=== PATIENT | male | born 1940 | race Caucasian/White ===

== ENCOUNTER → 2020-06-18 05:33 | Outpatient (CLI) | payer MEDICARE, SELFPAY ==
[2020-06-18 19:34] LABS: SARS-CoV-2 RNA PCR Negative
== END ==
PROVIDERS: PCP Family Medicine; Visit Provider Internal Medicine Cardiovascular Disease
DX: Z01.812 Encounter for preprocedural laboratory examination (principal); Z20.822 Contact with and (suspected) exposure to COVID-19
CPT/HCPCS: C9803; U0003; U0005

== ENCOUNTER 2020-06-21 01:21 | Day surgery (SDC) | payer MEDICARE, SELFPAY ==
[2020-06-20 16:10] VITALS: BMI 28.5
[2020-06-21] VITALS (12 sets, daily range): BP systolic 101–144; BP diastolic 75–101; PULSE 52–98; RESP 15–26; TEMP 36.2–36.3; O2SAT 92–98; BMI 24.5
--- NOTE | 2020-06-21 10:00 | ECG_ITS ---
Measurements Intervals [place] Rate: 89 P: ID: 0 QRS: 30 QRSD: 89 T: -13 QT: 359 QTc: 439 Interpretive Statements ATRIAL FIBRILLATION NONSPECIFIC T-WAVE ABNORMALITY- INFERIOR LEADS BASELINE ARTIFACT- V4-V6 ABNORMAL ECG Electronically Signed On 06-21-2020 10:51:23 CDT by Kofi Brooks D.O.
[2020-06-21 10:49] LABS: Hematocrit 43.1 % (42.0-52.0); Hemoglobin 14.2 g/dL (14.0-18.0); Mean Corpuscular HGB Conc 32.9 g/dl (32-36); Mean Corpuscular Hemoglobin 29.4 pg (26-34); Mean Corpuscular Volume 89.2 fl (80-100); Platelet Count Result 194 k/mm3 (150-375); Red Blood Count 4.83 M/mm3 (4.6-6.20); Red Cell Distribution Width 13.6 % (11.5-14.5); White Blood Count 6.8 K/mm3 (4.5-10.0)
[2020-06-21 11:03] LABS: Anion Gap 6 mmol/L (8-16); Blood Urea Nitrogen 21 mg/dL (9-20); Calcium 8.8 mg/dL (8.4-10.2); Carbon Dioxide 27 mmol/L (22-30); Chloride 108 mmol/L (98-107); Estimated CRCL calculation 58 ml/min; Estimated Glomerular Filt Rate > 60; Glucose 89 mg/dL (75-110); Potassium 4.1 mmol/L (3.4-5.0); Sodium 141 mmol/L (137-145)
--- NOTE | 2020-06-21 12:00 | WPDMODSED ---
Moderate Sedation Note-Pt Data Patient Data Diagnosis: Atrial fibrillation Present Complaint: None Procedure to be performed/Plan: Transesophageal echocardiogram guided elective electrical cardioversion Allergies Allergy/AdvReac Type Severity Reaction Status Date / Time No Known Allergies Allergy Unverified 05/18/20 13:02 Home Medications Medication Instructions Recorded Confirmed Type apixaban 5 mg tablet 5 mg PO BID #60 tablet 05/18/20 06/20/20 Rx vitamins A,C,B-tmfq-bwdcqe 14,320 1 cap PO BID 05/18/20 06/20/20 History unit-226 mg-200 unit capsule amlodipine 10 mg tablet See Rx Instructions .ROUTE 05/26/20 06/20/20 Rx .COMPLEX #90 tablet lisinopril 30 mg tablet See Rx Instructions .ROUTE 05/26/20 06/20/20 Rx .COMPLEX #90 tablet Current Medications: Active Medications Sodium Chloride (Normal Saline Iv) 1,000 mls @ 30 mls/hr IV CONT .Q24H VICENTA Sedation/Anesthesia: No previous sedation/anesthesia problems (including family history). PMFSH Past Medical History Medical History Afib Surgical History Surgical History History of radical prostatectomy Family History Family History Father Family history of lung cancer Mother Family history of coronary artery disease Social History Social History Smoking status: Former smoker Tobacco type: cigarettes Second hand tobacco smoke exposure: No Additional smoking assessment comments: Smoked for 5 years Alcohol intake: current Substance use: never Substance use type: does not use Living arrangements: with family Gender identity (if verbalized by the patient): Male Spiritual care concerns: No Mod Sed Physical Exam Physical Exam Pre Procedural Exam: Normal: Appearance, Eyes, Ears, Nose, Neck (Supple, normal range of motion), Throat (Posterior hypopharynx clear, nonerythematous), Airway (Normal anatomy, no obstruction), Lungs (Clear to auscultation bilaterally), Heart Size, Heart Rate, Neuro Exam, Abdomen, Liver, Kidneys, Extremities and Skin and Variation: Heart Rhythm (Irregular irregular) Hours since solid foods: 12 Hours since liquid intake: 12 Internal Medicine - PN: Obj Da Vital Signs Vital Signs: Vital Signs - 24 hr 06/21/20 10:37 Temperature 36.3 C L Pulse Rate 85 Respiratory Rate 20 Blood Pressure 120/90 Pulse Oximetry 97 Meds/Results Medications: Active Medications Generic Name Dose Route Start Last Admin Trade Name Freq PRN Reason Stop Dose Admin Sodium Chloride 1,000 mls @ 30 mls/hr 06/21/20 10:00 Normal Saline Iv IV CONT .Q24H VICENTA Labs CBC & Chem 7: 06/21/20 10:23 06/21/20 10:23 Labs: Laboratory Results - last 24 hr 06/21/20 06/21/20 06/21/20 10:23 10:23 10:23 WBC 6.8 RBC 4.83 Hgb 14.2 Hct 43.1 MCV 89.2 MCH 29.4 MCHC 32.9 RDW 13.6 Plt Count 194 MPV 11.0 H Sodium 141 Potassium 4.1 Chloride 108 H Carbon Dioxide 27 Anion Gap 6 L BUN 21 H Creatinine 0.90 Estim Creat Clear Calc 58 Estimated GFR > 60 Glucose 89 Calcium 8.8 Magnesium 2.0 ASA Classification/Sedation ASA Classification/Sedation ASA Class: III Emergent: No Risks: Risks, benefits and alternatives explained and patient/family accepted plan for sedation. Patient re-evaluated immediately prior to sedation.
--- NOTE | 2020-06-21 12:02 | WPDHPUPDATE1 ---
History and Physical Update Update Date/Time: 06/21/20 12:02 History and Physical has been reviewed, including an updated exam of the patient. There are NO changes in the patient's condition. Risks, benefits, and alternatives have been discussed and questions answered. Patient agrees to proceed with procedure.
--- NOTE | 2020-06-21 12:32 | ECG_ITS ---
Measurements Intervals [place] Rate: 59 P: 66 CA: 179 QRS: 40 QRSD: 92 T: 17 QT: 439 QTc: 437 Interpretive Statements SINUS BRADYCARDIA ATRIAL PREMATURE COMPLEXES BORDERLINE ST-T WAVE ABNORMALITY- ANT/INF LEADS BORDERLINE ECG Electronically Signed On 06-21-2020 12:46:51 CDT by Kofi Brooks D.O.
--- NOTE | 2020-06-21 12:34 | WPDTECDV ---
[facility] with Cardioversion Date of procedure: 06/21/20 Procedure Type: Transesophageal echocardiographic guided elective electrical cardioversion Diagnosis: Atrial fibrillation Indications: Atrial fibrillation Description of Procedure: Brief history present illness: Patient is a pleasant 80-year-old male with a history of recent diagnosis atrial fibrillation symptomatic with fatigue and shortness of breath, hypertension started on systemic anticoagulation and referred for transesophageal echocardiogram-guided elective electrical cardioversion in attempt to restore sinus rhythm. Procedure in detail: After verbal and written informed consent was obtained the patient risks, benefits, and alternatives explained in detail the patient agreed to proceed with the plan of care as outlined above. Patient was evaluated at bedside in the [facility] procedure room. On examination, neck was supple with normal range of motion, no restrictions to opening of the oral cavity, jaw angle and posterior hypopharynx was clear. Lungs were clear to auscultation. Patient was placed in appropriate 30 to 45 degree angle in a supine, slight left lateral decubitus position. Patient was monitored throughout the study with telemetry, oxygen saturation, end-tidal CO2 monitoring, blood pressure, heart rate, and respirations. Anterior and posterior defibrillator pads placed in the appropriate positions. The posterior hypopharynx was then locally anesthetized using repeated administration of Hurricaine spray as well as gargled viscous lidocaine. After local anesthetic of the posterior hypopharynx was achieved and the oral bite block placed, moderate sedation was administered. Through the oral bite block, the transesophageal echocardiogram probe was advanced into the posterior hypopharynx and into the esophagus easily and without complication. Multiple, multiplanar echocardiographic images were obtained in multiple standard re-projections. Pulsed wave, continuous-wave, and color-flow Doppler were utilized in conjunction with this study. At the conclusion of the study, the transesophageal echocardiogram probe was removed easily and without complication. Patient tolerated the procedure well without difficulty. Patient was in atrial fibrillation throughout the study. Sedation: Moderate Sedation/Anesthesia administration: Patient denied previous intolerance or complications with anesthesia/sedation. Please see sedation note for documentation of the pre-procedure physical examination. As noted above, after adequate local anesthesia of the posterior hypopharynx was achieved, a total of 2mg intravenous Versed and a total of 75mcg intravenous Fentanyl in multiple divided doses was utilized for moderate sedation. Sedation start time was 1208 and end time was 1233 for a total of 25 minutes [id number] intra-procedure time. Sedation was administered by a qualified observer Shantell Solis RN under my supervision with intra-procedure [id number] observation and management throughout the entirety of the procedure. There were no other issues or complications and patient tolerated the procedure well and sedation protocol well and I was present for the entirety. Findings: Findings: Left ventricular and right ventricular size and systolic function within normal limits with visually estimated left ventricular ejection fraction of 55% without wall motion abnormality. Mild concentric left ventricular hypertrophy noted. Moderate to severe left and right atrial enlargement. Faint spontaneous contrast noted within the left atrium. Interatrial septum anatomically normal with evidence of L to R atrial shunt with color-flow Doppler and suggestion of bidirectional R to L flow but not with injection of agitated saline with amnd without Valsalva. Mitral and tricuspid valve are anatomically normal with mild MV leaflet thickening and normal leaflet excursion with mild to moderate regurgitation with least 2 separate
--- NOTE | 2020-06-21 14:29 | SUR.PHASEII ---
1345 D/C instructions were given to patient, he and his verbalize understanding, all questions asked. IV d/c'd, cath intact, pressure applied. Pt transported via wheelchair to [facility] where his drove him home in private vehicle.
== END 2020-06-21 13:45 | disposition home or self-care (01) ==
PROVIDERS: PCP Family Medicine; Visit Provider Internal Medicine Cardiovascular Disease
PROC: (CPT 93312; principal; 2020-06-21 11:30)
PROC: 5A2204Z Restoration of Cardiac Rhythm, Single (ICD-10-PCS; 2020-06-21 11:30)
DX: I48.91 Unspecified atrial fibrillation (principal); R06.02 Shortness of breath; R53.83 Other fatigue; I10 Essential (primary) hypertension; Z79.01 Long term (current) use of anticoagulants; Z87.891 Personal history of nicotine dependence
CPT/HCPCS: 36415; 80048; 83735; 85027; 92960; 93005; 93312; 93320; 93325; J2250; J3010; J7030

== ENCOUNTER 2022-04-02 08:01 | Outpatient (CLI) | payer MEDICARE, SELFPAY ==
--- NOTE | ~2022-04-02 | US_ITS ---
EXAMINATION: US carotid duplex BI DATE: 04/02/2022 15:42 INDICATION: Dizziness. Giddiness. TECHNIQUE: Grayscale, color Doppler, and pulsed Doppler images of the cervical carotid arteries were obtained. The degree of vessel stenosis is placed in one of the following categories: normal, <50%, 5 0-69%, >=70% but less than near-occlusion, near-occlusion, or total occlusion. Note that percent sten osis relative to normal distal artery lumen diameter is indirectly measured from velocity measurement s as described by Eric, et al. Radiology 2003; 229:340-346. Notes: Normal: Peak systolic velocity <125 centimeters/sec and no plaque <50%. Peak systolic velocity <125 ( EDV <40; ICA/CCA PSV ratio <2.0; used these factors only a tandem lesions or low cardiac output or co ntralateral disease) 50-69 %: PSV 125-230 (EDV 40-100; ratio 2-4) >= 70% but less than near occlusion: PSV greater than 230 (EDV > 100; ratio> 4.0) Near Occlusion: PSV that is variable; markedly narrowed lumen Occlusion: Absent flow on color/spectral Doppler and no lumen on hill scale. COMPARISON: None. FINDINGS: RIGHT: The right common carotid artery (CCA) peak systolic velocity (PSV) is 83 cm/s. The right internal car otid artery (ICA) PSV is 87 cm/s. The right ICA end-diastolic velocity (EDV) is 35 cm/s. The right IC A/CCA PSV ratio is 1.0. The external carotid artery (ECA) PSV is 59 cm/s. There is antegrade flow in the right vertebral artery. LEFT: The left CCA PSV is 99 cm/s. The left ICA PSV is 64 cm/s. The left ICA EDV is 26 cm/s. The left ICA/C CA PSV ratio is 0.6. The ECA PSV is 83 cm/s. There is retrograde flow in the left vertebral artery. IMPRESSION: 1. Less than 50% stenosis in the right internal carotid artery by sonographic criteria. 2. Less than 50% stenosis in the left internal carotid artery by sonographic criteria. 3: Retrograde flow in the left vertebral artery. Reviewed, dictated and finalized at location A. NSION SPECIALIST IMPRESSION: 1. Less than 50% stenosis in the right internal carotid artery by sonographic c riteria. 2. Less than 50% stenosis in the left internal carotid artery by sonographic cr iteria. 3: Retrograde flow in the left vertebral artery.
== END 2022-04-02 08:02 | disposition home or self-care (01) ==
PROVIDERS: PCP Family Medicine; Visit Provider Family Medicine
DX: R42 Dizziness and giddiness (principal); G45.9 Transient cerebral ischemic attack, unspecified
CPT/HCPCS: 93880

== ENCOUNTER 2022-06-21 10:09 | Outpatient (CLI) | payer MEDICARE, SELFPAY ==
--- NOTE | ~2022-06-21 | XR_ITS ---
XR chest 2V DATE: 06/21/2022 10:48 INDICATION: Shortness of breath. Cold symptoms for one week. TECHNIQUE: PA and lateral views COMPARISON: None FINDINGS: There is mild infiltrate or atelectasis at both lung bases. Mild infiltrate focal infiltrat e or mass density is suggested in the right mid-upper lung and left midlung.. Short-term chest radiog raphic follow-up is recommended. If these findings do not clear, then CT thorax would be recommended. Heart size is within normal range. Is aortic calcification and mild unfolding. IMPRESSION: Bilateral pulmonary infiltrates; short-term chest radiographic follow-up is recommended t o ensure clearing and to exclude any possible pulmonary mass lesion. If the findings do not clear in a couple of weeks, then CT thorax is recommended. Reviewed, dictated and finalized at location A. IMPRESSION: Bilateral pulmonary infiltrates; short-term chest radiographic foll ow-up is recommended to ensure clearing and to exclude any possible pulmonary m ass lesion. If the findings do not clear in a couple of weeks, then CT thorax i s recommended.
[2022-06-21 10:46] LABS: Basophils Absolute Auto 0.1 K/mm3 (0.0-0.1); Basophils Percent Auto 0.4 % (0.2-1.2); Eosinophils Absolute Auto 0.1 K/mm3 (0-0.3); Eosinophils Percent Auto 0.4 % (0-4.4); Hematocrit 42.6 % (42.0-52.0); Hemoglobin 13.8 g/dL (14.0-18.0); Immature Granulocyte Absolute 0.06 K/mm3 (0.00-0.031); Immature Granulocyte Percent A 0.5 % (0-0.5); Lymphocytes Absolute Auto 0.62 K/mm3 (0.9-3.2); Lymphocytes Percent Auto 4.8 % (18.3-44.2); Mean Corpuscular HGB Conc 32.4 g/dl (32-36); Mean Corpuscular Hemoglobin 29.8 pg (26-34); Mean Platelet Volume 10.7 fl (7.4-10.4); Monocytes Absolute Auto 1.4 K/mm3 (0.1-0.6); Monocytes Percent Auto 10.8 % (2.6-8.5); Neutrophils Absolute Auto 10.8 K/mm3 (1.3-6.7); Neutrophils Percent Auto 83.1 % (45.5-73.1); Platelet Count Result 234 k/mm3 (150-375); Red Blood Count 4.63 M/mm3 (4.6-6.20); Red Cell Distribution Width 13.3 % (11.5-14.5)
[2022-06-21 10:53] LABS: Alanine Aminotransferase 37 U/L (6-50); Albumin Level 4.2 g/dL (3.5-5.1); Alkaline Phosphatase 79 U/L (38-126); Anion Gap 6 mmol/L (8-16); Aspartate Amino Transferase 30 U/L (17-59); Bilirubin,Total 1.5 mg/dL (0.2-1.3); Blood Urea Nitrogen 13 mg/dL (9-20); Carbon Dioxide 29 mmol/L (22-30); Chloride 104 mmol/L (98-107); Estimated Glomerular Filt Rate > 60; Glucose 100 mg/dL (65-110); Potassium 4.3 mmol/L (3.4-5.0); Sodium 139 mmol/L (137-145)
[2022-06-21 11:00] LABS: NT Pro B Type Natriuretic Pept 2060 pg/mL (19.9-100)
== END 2022-06-21 10:10 | disposition home or self-care (01) ==
PROVIDERS: PCP Family Medicine; Visit Provider Physician Assistant
DX: E78.00 Pure hypercholesterolemia, unspecified (principal); R50.9 Fever, unspecified; R06.02 Shortness of breath; R91.8 Other nonspecific abnormal finding of lung field
CPT/HCPCS: 36415; 71046; 80053; 83880; 85025

== ENCOUNTER 2023-05-16 14:25 | Emergency (ER) | payer MEDICARE, SELFPAY ==
[2023-05-16] VITALS (9 sets, daily range): BP systolic 112–131; BP diastolic 69–90; PULSE 62–91; RESP 16–17; TEMP 36.3; O2SAT 95–98
--- NOTE | ~2023-05-16 | CT_ITS ---
EXAMINATION: CTA abdomen pelvis DATE: 05/16/2023 18:16 INDICATION: Abdominal pain TECHNIQUE: Computed tomographic angiography (CTA) of the abdomen and pelvis was performed with 100 mL Omnipaque-350 intravenous contrast. Maximum intensity projection 3D-reconstructions of the aorta and other arteries were constructed by the technologist on a separate workstation. The dose-length produ ct (DLP) was 521.31 mGy-cm. Automated exposure control and iterative reconstruction technique were em ployed. COMPARISON: None. FINDINGS: There is atelectasis of the visualized lung bases. There is biatrial enlargement of the hea rt. There is pleural thickening with associated dense calcification along the left hemidiaphragm. The re is a moderate-sized hiatal hernia. The liver, spleen, pancreas, gallbladder, and adrenal glands ar e normal. Cysts of the kidneys measure up to 9 mm on the right. No pathologically enlarged abdominal or pelvic lymph nodes are identified. There are multiple dilated loops of small bowel without focal t ransition point. No free intraperitoneal gas is identified. There is severe lumbar spondylosis. No aneurysm or dissection of the aorta. The celiac axis, superior mesenteric artery, and inferior mes enteric artery are normal at their origins. The right hepatic artery arises from the superior mesente luis artery. There are two right and one left renal arteries. Calcified atherosclerosis is noted in th e pelvic vessels. IMPRESSION: 1. Dilated small bowel without focal transition point, consistent with ileus versus partial obstructi on. 2. No aneurysm or dissection of aorta. 3. Calcified pleural thickening along the left hemidiaphragm which could reflect prior asbestos expos ure. Reviewed, dictated and finalized at location F. CONTROL SERVICE TECHNICIAN IMPRESSION: 1. Dilated small bowel without focal transition point, consistent with ileus ve rsus partial obstruction. 2. No aneurysm or dissection of aorta. 3. Calcified pleural thickening along the left hemidiaphragm which could reflec t prior asbestos exposure.
[2023-05-16 15:26] LABS: Basophils Percent Auto 0.2 % (0.2-1.2); Eosinophils Percent Auto 0.1 % (0-4.4); Hemoglobin 14.5 g/dL (14.0-18.0); Immature Granulocyte Absolute 0.03 K/mm3 (0.00-0.031); Immature Granulocyte Percent A 0.2 % (0-0.5); Lymphocytes Absolute Auto 0.59 K/mm3 (0.9-3.2); Lymphocytes Percent Auto 4.7 % (18.3-44.2); Mean Corpuscular HGB Conc 32.2 g/dl (32-36); Mean Corpuscular Hemoglobin 29.5 pg (26-34); Mean Corpuscular Volume 91.5 fl (80-100); Mean Platelet Volume 11.2 fl (7.4-10.4); Monocytes Absolute Auto 1.4 K/mm3 (0.1-0.6); Neutrophils Absolute Auto 10.6 K/mm3 (1.3-6.7); Neutrophils Percent Auto 83.8 % (45.5-73.1); Platelet Count Result 176 k/mm3 (150-375); Red Blood Count 4.92 M/mm3 (4.6-6.20); Red Cell Distribution Width 14.5 % (11.5-14.5); White Blood Count 12.7 K/mm3 (4.5-10.0)
[2023-05-16 15:35] LABS: Alanine Aminotransferase 28 U/L (6-50); Albumin Level 4.3 g/dL (3.5-5.1); Alkaline Phosphatase 65 U/L (38-126); Anion Gap 10 mmol/L (8-16); Aspartate Amino Transferase 30 U/L (17-59); Bilirubin,Total 1.9 mg/dL (0.2-1.3); Blood Urea Nitrogen 20 mg/dL (9-20); Calcium 9.2 mg/dL (8.4-10.2); Carbon Dioxide 23 mmol/L (22-30); Chloride 106 mmol/L (98-107); Estimated CRCL calculation 49 ml/min; Estimated Glomerular Filt Rate > 60; Glucose 117 mg/dL (65-110); Lipase 91 U/L (23-300); Potassium 4.2 mmol/L (3.4-5.0); Sodium 139 mmol/L (137-145)
--- NOTE | 2023-05-16 17:31 | ED.NAVMDI ---
HPI - Nausea/Vomiting/Diarrhea General Chief complaint: Nausea/Vomiting/Diarrhea <Becky Murillo PA-C - Last Filed: 05/18/23 18:40> Stated complaint: n/v/d <Becky Murillo PA-C - Last Filed: 05/18/23 18:40> Time Seen by Provider: 05/16/23 17:16 <Becky Murillo PA-C - Last Filed: 05/18/23 18:40> History of Present Illness HPI Narrative: 83-year-old male with history of atrial fibrillation is chronically anticoagulated on warfarin, hypertension, hyperlipidemia reports for evaluation for nausea, vomiting and diarrhea x3 days. Patient states he has been having multiple episodes of watery diarrhea for the past 3 days with associated abdominal distension. States he had some nausea with an episode of emesis today. He is also reporting generalized abdominal discomfort and states it feels sore . States last night after eating supper his abdominal pain worsened. He has not eaten anything today. Reports remote history of hernia repairs x2, denies other abdominal surgeries. Denies the recent surgeries or hospitalizations, antibiotic use or travel. Denies recent laxative use, chest pain or shortness of breath, fever, dysuria or hematuria, cough or congestion. He does endorse chills and hot flashes. <Becky Murillo PA-C - Last Filed: 05/18/23 18:40> Related Data Home medications: Home Medications Medication Instructions Recorded Confirmed vitamins A,C,X-lkrt-uviswo 4,296 1 cap PO BID 05/18/20 06/26/22 mcg-226 mg-90 mg capsule (PreserVision AREDS) bimatoprost 0.01 % eye drops 1 drp EACH EYE DAILY 04/27/21 06/26/22 (Lumigan) carboxymethylcellulose 0.5 1 drp EACH EYE TID 04/27/21 06/26/22 %-glycerin 0.9 % eye drops (Refresh Relieva) omega-3 fatty acids 1,000 mg 2,000 mg PO DAILY 04/27/21 06/26/22 capsule warfarin 4 mg tablet 4 mg PO QMWF 02/26/22 06/26/22 warfarin 6 mg tablet 6 mg PO 4XW 02/26/22 06/26/22 metoprolol tartrate 50 mg tablet 50 mg PO BID 04/18/22 06/26/22 <Becky Murillo PA-C - Last Filed: 05/18/23 18:40> Allergies/Adverse reactions: Allergies Allergy/AdvReac Type Severity Reaction Status Date / Time No Known Allergies Allergy Verified 05/16/23 14:27 <Becky Murillo PA-C - Last Filed: 05/18/23 18:40> Review of Systems Review of Systems: CONSTITUTIONAL: see HPI EYES: Denies visual changes, redness, or discharge. ENT: Denies rhinorrhea, congestion, sore throat, or otalgia. CARDIOVASCULAR: Denies chest pain, palpitations, or edema. RESPIRATORY: Denies cough or dyspnea. GASTROINTESTINAL: see HPI GENITOURINARY: Denies dysuria or hematuria. SKIN: Denies rash or itching. MUSCULOSKELETAL: Denies back pain, joint pain, or myalgia. NEUROLOGIC: Denies headache, numbness, or weakness. PSYCHIATRIC: Denies anxiety or depression. <Becky Murillo PA-C - Last Filed: 05/18/23 18:40> [facility] Past Medical History Medical History: Medical History Afib <Becky Murillo PA-C - Last Filed: 05/18/23 18:40> Surgical History Surgical History: Surgical History History of radical prostatectomy <Becky Murillo PA-C - Last Filed: 05/18/23 18:40> Family History Family History: Family History Father Family history of lung cancer Mother Family history of coronary artery disease <Becky Murillo PA-C - Last Filed: 05/18/23 18:40> Social History Social History: Social History Social History: Smoking status: Former smoker Second hand tobacco smoke exposure: No Additional smoking assessment comments: Smoked for 5 years Alcohol intake: current Alcohol use details: Rarely Substance use: never Substance use type: does not use Living arrangements: with family Occup
[2023-05-16] MEDS: ONDANSETRON INJ 4 MG/2 ML VIAL IV PUSH ×2 (17:57→21:08)
[2023-05-16] MEDS: SODIUM CHLORIDE 0.9% IV 1,000 ML 999 ML IV CONT ×2 (17:57→20:21)
--- NOTE | 2023-05-16 18:02 | PC.NURSE ---
pt unable to urinate at this time. IV fluids are connected and educated pt to use call light with any urge to urinate
[2023-05-16 18:35] LABS: Influenza A QL RT-PCR Negative (Negative); Influenza B QL RT-PCR Negative (Negative); RSV RNA, RT-PCR Negative (Negative); SARS-CoV-2 RNA PCR Negative (Negative)
--- NOTE | 2023-05-16 20:56 | PC.NURSE ---
pt still unable to urinate at this time, but declines straight catheter
[2023-05-16 22:27] LABS: Appearance Urine Clear (Clear); Bacteria Urine None Seen /hpf; Bilirubin Urine Negative (Negative); Blood Urine Trace (Negative); Color Urine Yellow (Yellow); Glucose Urine UA Negative (Negative); Ketones Urine Trace mg/dL (Negative); Leukocyte Esterase Ur Negative LEU/UL (Negative); Need Manual Microscopic Reviewed; Nitrate Urine Negative (Negative); Non Pathogenic Casts 0-2; Protein Urine 1+ mg/dL (Negative); Squamous Epithelial Cell Urine None seen /hpf (Few); Urobilinogen Urine 0.2 mg/dL (<2.0); WBC Urine 0-5 /hpf; pH Urine 5.5 (5.0-9.0)
[2023-05-16 22:28] LABS: Add Urine Microscopic? YES; Specific Grav Ur >= 1.099 (1.001-1.035)
--- NOTE | 2023-05-16 23:06 | PC.NURSE ---
pt care and report given to CHUCK Trivedi. all questions answered
== END 2023-05-17 00:16 | disposition home or self-care (01) ==
PROVIDERS: Physician Assistant; Preventive Medicine Aerospace Medicine; Emergency Provider Student in an Organized Health Care Education/Training Program; PCP Family Medicine
DX: K52.9 Noninfective gastroenteritis and colitis, unspecified (principal); K56.7 Ileus, unspecified; J92.9 Pleural plaque without asbestos; Z20.822 Contact with and (suspected) exposure to COVID-19; E78.5 Hyperlipidemia, unspecified; I10 Essential (primary) hypertension; Z79.01 Long term (current) use of anticoagulants; Z90.79 Acquired absence of other genital organ(s); Z87.891 Personal history of nicotine dependence
CPT/HCPCS: 36415; 74174; 80053; 81001; 83605; 83690; 85025; 87637; 96361; 96374; 96375; 99284; J2405; J7030; Q9967